=== PATIENT | female | born 1935 | race Caucasian/White ===

== ENCOUNTER → 2017-02-24 | Outpatient (CLI) | payer MEDICARE, OTHER ==
--- NOTE | 2017-02-24 12:38 | RAD ---
EXAM DESCRIPTION: Shoulder,Left 2 or More Views CLINICAL HISTORY: SHOULDER PAIN COMPARISON: April 27, 2015 TECHNIQUE: Four views of the left shoulder. FINDINGS: The bones are osteopenic with mild AC joint arthropathy and moderate degenerative lipping at the inferior margin of the humeral head. The chest wall appears intact. The aorta is tortuous. No fracture or destructive change or significant interval change from a single view available 04/27/2015 is noted. IMPRESSION: 1. Osteopenic and degenerative shoulder without acute injury. Electronically signed by: Milan Cerna MD 02/24/2017 12:38 PM CDT
== END | disposition home or self-care (01) ==
LOC: RAD 08:17
PROVIDERS: ATTEND Orthopaedic Surgery
DX: M25.512 Pain in left shoulder (principal)

== ENCOUNTER → 2017-03-19 | Outpatient (CLI) | payer MEDICARE | END | disposition home or self-care (01) | LOC: GMAB 12:13 | PROVIDERS: ATTEND Family Medicine | DX: E03.9 Hypothyroidism, unspecified (principal) ==

== ENCOUNTER → 2017-06-27 | Outpatient (CLI) | payer MEDICARE | END | disposition home or self-care (01) | LOC: GMAB 13:12 | PROVIDERS: ATTEND Family Medicine | DX: R06.02 Shortness of breath (principal) ==

== ENCOUNTER → 2018-01-05 | Outpatient (CLI) | payer MEDICARE | LOC: GMAB 17:17 | PROVIDERS: ATTEND Family Medicine | DX: K59.01 Slow transit constipation (principal); R10.33 Periumbilical pain ==

== ENCOUNTER → 2018-02-09 | Outpatient (CLI) | payer MEDICARE ==
--- NOTE | 2018-02-09 08:16 | RAD ---
EXAM DESCRIPTION: Shoulder,Left 2 or More Views CLINICAL HISTORY: PAIN IN LEFT SHOULDER COMPARISON: Previous study February 24, 2017, left shoulder for x-ray views TECHNIQUE: Four views of the left shoulder. FINDINGS: There is adequate internal and external rotation. Normal alignment on transscapular Y view and transaxillary view There is no fracture or dislocation. Sclerosis and eburnation of the humeral head is noted with complete cartilage loss at the glenohumeral joint. Prominent medial osteophyte of the proximal left humeral head neck junction. Findings appear similar to previous study. IMPRESSION: Degenerative changes of the glenohumeral joint with proximal humeral spurring. Electronically signed by: Luis M Corado MD 02/09/2018 8:15 AM CDT
== END ==
LOC: RAD 07:33
PROVIDERS: ATTEND Orthopaedic Surgery
DX: M25.512 Pain in left shoulder (principal)

== ENCOUNTER → 2018-03-05 | Outpatient (CLI) | payer MEDICARE | LOC: GMAB 14:33 | PROVIDERS: ATTEND Family Medicine | DX: G30.9 Alzheimer's disease, unspecified (principal) ==

== ENCOUNTER → 2018-03-11 | Outpatient (CLI) | payer MEDICARE ==
--- NOTE | 2018-03-11 15:57 | CT ---
EXAM DESCRIPTION: Abdomen/Pelvis w/wo Contrast: Computed Tomography. CLINICAL HISTORY: ASYMPTOMATIC MICROSCOPIC HEMATURIA COMPARISON: None. TECHNIQUE: Spiral-axial scans at 5.0 mm intervals through the abdomen and pelvis before and after standard dose nonionic IV contrast. No oral contrast. Coronal and sagittal 2.0 mm reconstructions. 5 mm Delayed helical-axial scans, liver through the pubic symphysis. No adverse reactions. Total Exam DLP 1514 mGy - cm. This exam was performed according to our departmental CT dose-optimization program which includes automated exposure control, adjustment of the mA and/or kV according to patient size and/or use of iterative reconstruction technique; to reduce radiation dose to as low as reasonably achievable (ALARA). FINDINGS: Lung bases and pleura: Bilateral scarring in the lung bases. No pleural effusion. Minimal coronary artery calcification. Liver, Stomach, Spleen, Adrenal Glands: Negative. Pancreas, Gallbladder, Ducts: Gallbladder has been surgically removed with no fluid in the gallbladder fossa. Other organs are unremarkable.. Kidneys and Ureters: Negative. Mesentery: No free air or ascites. No mesenteric stranding or fascial thickening. Aorta: Minimal atherosclerotic calcification and ectasia. Small Bowel: Avila fluid and gas distal small bowel with air-fluid levels but no significant distention. Terminal Ileum/Cecum: Anastomotic surgery on the cecum. Adjacent fatty calcifications. Normal caliber of the distal ileum. Appendix not seen. No fatty stranding or fluid. Colon: Mostly fluid distally with no diverticula and no air-fluid levels. No wall thickening. Pelvic Organs: Small anteverted uterus abutting the dome of the urinary bladder. The bladder contains minimal contrast with possible right lateral diverticulum. No fluid in the cul-de-sac. Ovaries are not well seen. Multiple tortuous vessels in the bilateral pelvis abutting the uterus and extending into the adnexa more on the right than the left. These vessels connecting to the bilateral renal veins superiorly. No contrast extravasation.. Spine and Bony Pelvis: Spondylosis L1-L2 and L5-S1 with foraminal narrowing at both levels. Abdominal Wall/Back Soft Tissues: Negative. IMPRESSION: 1. Bilateral kidneys are unremarkable. Right ureter unremarkable left ureter not well seen. Minimal filling of the urinary bladder with possible right lateral diverticulum. Consider retrograde cystoscopy. 2. Small uterus is seen with multiple dilated vascular structures and interpreted to be venous which connect to bilateral ovarian veins and bilateral renal veins. No contrast extravasation. No fluid in the cul-de-sac. 3. Increased fluid and gas in the distal small bowel but no significant air-fluid levels and no evidence of obstruction. No free fluid or free air. Electronically signed by: Humberto Young MD 03/11/2018 3:56 PM CDT
--- NOTE | 2018-03-11 16:18 | CT ---
EXAM DESCRIPTION: Head w/wo Contrast: Computed Tomography. CLINICAL HISTORY: ALZHEIMER'S DISEASE, UNSPECIFIED COMPARISON: CT scan of the abdomen and pelvis on this visit. TECHNIQUE: Non - Helical-axial scans through the head and brain at 2.5 mm intervals, without and with nonionic IV contrast. Coronal and sagittal 2.5 mm reconstructions, without and with nonionic IV contrast. No adverse reactions. Total Exam DLP: 1504.96 mGy-cm. This exam was performed according to our departmental CT dose-optimization program which includes automated exposure control, adjustment of the mA and/or kV according to patient size and/or use of iterative reconstruction technique; to reduce radiation dose to as low as reasonably achievable (ALARA). FINDINGS: No hemorrhage. No mass-effect and no midline shift. Normal contrast enhancement. Minimally decreased density bilateral periventricular white matter. No abnormal radiodense material in the brain parenchyma.Vascular calcifications anterior and posterior circulations; physiologic calcifications in the pineal gland and choroid plexus. No effacement or displacement of the ventricles, CSF spaces, or subdural spaces. Normal contrast enhancement. No extra axial fluid collection or hemorrhage. No gross abnormalities of the bony calvarium. . Ectasia noted in the bilateral ICAs and proximal middle cerebral arteries. Right posterior communicating arteries present. Ectasia also noted in the distal basilar artery. Included paranasal air cells show minimal mucoperiosteal thickening with bilateral kristie bullosa in the middle turbinates. Mastoid air cells are unremarkable. IMPRESSION: 1. No hemorrhage, intra-axial or extra-axial. No mass effect or midline shift.. 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 2. Ectasia in the distal basilar artery and in the proximal bilateral intracranial ICAs with atherosclerotic calcification in the anterior and posterior circulations. Electronically signed by: Humberto Young MD 03/11/2018 4:16 PM CDT
== END ==
LOC: CT 09:17
PROVIDERS: ATTEND Family Medicine
DX: G30.9 Alzheimer's disease, unspecified (principal); R31.21 Asymptomatic microscopic hematuria; N23 Unspecified renal colic

== ENCOUNTER → 2018-04-20 | Outpatient (CLI) | payer MEDICARE | LOC: GMAE 12:11 | PROVIDERS: ATTEND Family Medicine | DX: E03.9 Hypothyroidism, unspecified (principal) ==

== ENCOUNTER 2018-11-08 19:24 | Emergency (ER) | payer MEDICARE ==
[2018-11-08 19:43] VITALS: TEMP 98
[2018-11-08] MEDS ORDERED: CLOPIDOGREL 75 MG TAB PO ONE (19:48)
[2018-11-08] MEDS ORDERED: PRAVASTATIN SODIUM 20 MG TAB PO ONE (19:49)
--- NOTE | 2018-11-08 19:50 | ED.PDOC ---
History of Present Illness - General Chief Complaint: Eye Problems Stated Complaint: momentary vision loss left eye Time Seen by Provider: 11/08/18 19:44 Source: patient Exam Limitations: no limitations - History of Present Illness Initial Comments: Krystin Santana 83 y/o female stated that while reading a book tonight she had momentary loss of vision on her left eye lasting for few minutes but wiliam back several years ago it happened to her right eye 2 x but never reported it to her Md when she had visit last week.Denies any history of trauma to eyes, muscle weakness,dysarthria.dnies chronic medical problems except for chronic back pains. Timing/Duration: 1-3 hours Severity: moderate Improving Factors: nothing Worsening Factors: nothing Associated Symptoms: denies symptoms Allergies/Adverse Reactions: Allergies Aspirin Allergy (Verified 11/08/18 19:42) Codeine Allergy (Unverified 04/14/13 07:59) Home Medications: Ambulatory Orders Omeprazole 20 mg PO DAILY 04/14/13 Raloxifene HCl [Evista] 60 mg PO DAILY 04/14/13 Thyroid [Magnetic Prospecting Supervisor Thyroid 30] 30 mg PO DAILY 04/14/13 Clopidogrel Bisulfate [Plavix] 75 mg PO QDPC #30 tab 11/08/18 Memory Pill 11/08/18 Pravastatin Sodium 10 mg PO BEDTIME #30 tab 11/08/18 Propranolol HCl 40 mg PO 11/08/18 Review of Systems - Review of Systems Constitutional: States: no symptoms reported EENTM: States: see HPI, blurred vision Respiratory: States: no symptoms reported Cardiology: States: no symptoms reported Gastrointestinal/Abdominal: States: no symptoms reported Genitourinary: States: no symptoms reported Musculoskeletal: States: no symptoms reported Skin: States: no symptoms reported Neurological: States: no symptoms reported Endocrine: States: no symptoms reported Past Medical History (General) - Patient Medical History Hx Congestive Heart Failure: No Hx Thyroid Disease: Yes Hx Diabetes: No Hx Gastroesophageal Reflux: Yes Surgical History: appendectomy, cholecystectomy, colectomy - Vaccination History Hx Influenza Vaccination: No - Triage Comment ED Triage Comment: Momentary "black vision" in left eye. Denies any other systems Family Medical History - Family History Father Family History: Unknown Hx Family Stroke: Yes - at age 80 y/o Physical Exam - Physical Exam General Appearance: Alert, Comfortable, No apparent distress Eye Exam: bilateral normal, bilateral other - unable to see funduscopic exam patient unable to tolerate light Ears, Nose, Throat: normal ENT inspection, normal pharynx Neck: non-tender, full range of motion, supple, normal inspection, other - no carotid bruits bilaterally Respiratory: chest non-tender, lungs clear, normal breath sounds Cardiovascular/Chest: normal peripheral pulses, regular rate, rhythm, no murmur Peripheral Pulses: radial,right: 2+, radial,left: 2+ Gastrointestinal/Abdominal: normal bowel sounds, non tender, soft, no organomegaly Back Exam: no CVA tenderness, no vertebral tenderness Extremity: no pedal edema, no calf tenderness Neurologic: alert, oriented x 3 Skin Exam: normal color, warm/dry Lymphatic: no adenopathy Progress - Progress Progress: 11/08/18 21:36 Vital Signs - 8 hr 11/08/18 11/08/18 11/08/18 19:38 20:13 20:30 Temperature 98.0 F Pulse Rate [ 56 L 50 L 52 L Right] Respiratory 18 16 16 Rate Blood Pressure 140/107 124/79 122/79 [Left Arm] O2 Sat by Pulse 96 97 96 Oximetry 11/08/18 21:43 Discuss all test result with patient in the presence of her recommend neri for hospital obs but wants to go home prefers to see her Md this coming week has an appointment with Dr. Almeida. - Results/Orders Results/Orders: 11/08/18 19:45 EKG STAT 11/08/18 20:05 C-REACTIVE PROTEIN Stat CARDIAC PANEL,ER Stat HEPATIC FUNCTION PANEL Stat Laboratory Results - last 24 hr 11/08/18 11/08/18 20:05 20:05 WBC 6.9 RBC 4.04 L Hgb 12.8 Hct 39.0 MCV 96.3 MCH 31.6 H MCHC 32.9 L RDW 13.7 Plt Count 183 MPV 7.3 L Absolute Neuts (auto) 3.90 Absolute Lymphs (auto) 2.40 Absolute Monos (auto) 0.50 Absolute Eos (auto) 0.10 Absolute Basos (auto) 0.10 Neutrophils % 55.9 Lymphocytes % 34.0 Monocytes % 7.7 Eosinophils % 1.5 Basophils % 0.9 ESR 5 PT 10.0 INR 1.00 PTT (SP) 24.3 Sodium 135 Potassium 4.4 Chloride 97 L Carbon Dioxide 31 Anion Gap 11.4 L BUN 23 H Creatinine 1.02 BUN/Creatinine Ratio 22.5 H Random Glucose 83 Serum Osmolality 272.9 L Calcium 9.3 Magnesium 2.1 Total Bilirubin 0.3 Direct Bilirubin < 0.1 Indirect Bilirubin 0.2 AST 24 ALT 17 Alkaline Phosphatase 43 Creatine Kinase 218 H* CK-MB (CK-2) 2.6 Troponin I < 0.02 C-Reactive Protein 0.8 Serum Total Protein 6.8 Albumin 4.1 - EKG/XRAY/CT EKG: Godfrey, Sinus Comments: HR-51 CT Ordered: Yes - no acute abnormalities/radiologist Departure - Departure Clinical Impression: Amaurosis fugax of left eye Time of Disposition: 21:46 Disposition: Discharge to Home or Self Care Condition: Fair Departure Forms: ED Discharge - Pt. Copy, Patient Portal Self Enrollment Instructions: DI for Visual Field Disturbances Referrals: Raúl Ferrari MD [Primary Care Provider] - 1-2 Weeks Prescriptions: Clopidogrel Bisulfate [Plavix] 75 mg PO QDPC #30 tab Pravastatin Sodium 10 mg PO BEDTIME #30 tab Home Medications: Ambulatory Orders Omeprazole 20 mg PO DAILY 04/14/13 Raloxifene HCl [Evista] 60 mg PO DAILY 04/14/13 Thyroid [Magnetic Prospecting Supervisor Thyroid 30] 30 mg PO DAILY 04/14/13 Clopidogrel Bisulfate [Plavix] 75 mg PO QDPC #30 tab 11/08/18 Memory Pill 11/08/18 Pravastatin Sodium 10 mg PO BEDTIME #30 tab 11/08/18 Propranolol HCl 40 mg PO 11/08/18 Additional Instructions: Return to ER if symptoms worsens;Keep appointment with primary Md as scheduled this week
--- NOTE | 2018-11-08 20:31 | RAD ---
EXAM: Chest,1 View CLINICAL INDICATION: 83-year-old female with temporary vision loss. TECHNIQUE: Single view, AP portable chest was obtained. COMPARISON: 09/27/2013. FINDINGS: Stable cardiac and mediastinal silhouette. Heart size is normal. Lungs are clear without focal opacity, pneumothorax or pleural effusions. The visualized bones are within normal limits. IMPRESSION: No acute cardiopulmonary abnormalities. Electronically signed by: Katina Ragland MD 11/08/2018 8:29 PM [facility]
--- NOTE | 2018-11-08 20:44 | CT ---
EXAM: Head CLINICAL INDICATION: 81-year-old female with temporary visual loss. COMPARISON: 03/11/2018. TECHNIQUE: CT brain without contrast. This exam was performed according to our departmental dose optimization program which includes use of automated exposure control, adjustment of the mA and/or kV according to patient size and/or use of iterative reconstruction technique. FINDINGS: The ventricles, sulci, and cisterns are symmetric and unremarkable. The leonard-white matter differentiation is preserved. There is no mass effect, midline shift, intra- or extra-axial fluid collection/acute hemorrhage. The osseous structures are unremarkable. The paranasal sinuses and mastoid air cells are clear. IMPRESSION: 1. No acute intracranial abnormalities. 2. CT is insensitive for early evaluation of acute stroke. If there is clinical concern for acute ischemia, an MRI may be considered. Electronically signed by: Katina Ragland MD 11/08/2018 8:43 PM [facility]
[2018-11-08 22:01] VITALS: BP 127/97; O2SAT 97
== END 2018-11-08 22:02 | disposition home or self-care (01) ==
LOC: ER 19:24
DX: G45.3 Amaurosis fugax (principal); R00.1 Bradycardia, unspecified; E07.9 Disorder of thyroid, unspecified; K21.9 Gastro-esophageal reflux disease without esophagitis; Z79.899 Other long term (current) drug therapy; Z88.6 Allergy status to analgesic agent; Z88.5 Allergy status to narcotic agent

== ENCOUNTER → 2018-11-10 | Outpatient (CLI) | payer MEDICARE ==
--- NOTE | 2018-11-10 11:37 | US ---
EXAM DESCRIPTION: Carotid Duplex CLINICAL HISTORY: UNSPECIFIED VISUAL DISTURBANCE COMPARISON: None Available. TECHNIQUE: Carotid Doppler ultrasound FINDINGS: Right Submitted images show no significant stenosis in the common carotid, internal carotid or external carotid arteries. Mild plaque in the right carotid bulb. Right ICA is tortuous. The following flow velocities were obtained: Common carotid artery peak systolic flow velocity measures 78 centimeters per second. Internal carotid artery peak systolic flow velocity measures 60 centimeters per second. External carotid artery peak systolic flow velocity measures 59 centimeters per second. Flow in the right vertebral artery is antegrade. The right internal carotid to common carotid peak systolic flow velocity ratio equals 0.8 which is normal. Left Submitted images show normal caliber of the left common carotid, internal carotid and external carotid arteries with no significant stenosis. Mild calcified plaque in the proximal left ICA. Markedly tortuous left ICA. The following flow velocities were obtained: Common carotid artery peak systolic flow velocity measures 76 centimeters per second. Internal carotid artery peak systolic flow velocity measures 50 centimeters per second. External carotid artery peak systolic flow velocity measures 77 centimeters per second. Flow in the left vertebral artery is antegrade. The left internal carotid to common carotid peak systolic flow velocity ratio of 0.7 is normal. 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 No hemodynamically significant stenosis. Electronically signed by: Luis M Corado MD 11/10/2018 11:36 AM [facility]
== END ==
LOC: US 10:31
PROVIDERS: ATTEND Family Medicine
DX: I65.23 Occlusion and stenosis of bilateral carotid arteries (principal); H53.9 Unspecified visual disturbance

== ENCOUNTER → 2019-04-28 | Outpatient (CLI) | payer MEDICARE | LOC: GMAE 11:04 | PROVIDERS: ATTEND Family Medicine | DX: E03.9 Hypothyroidism, unspecified (principal); E78.2 Mixed hyperlipidemia; Z79.899 Other long term (current) drug therapy ==

== ENCOUNTER → 2019-11-10 | Outpatient (CLI) | payer MEDICARE | LOC: GMAE 16:52 | PROVIDERS: ATTEND Family Medicine | DX: R53.83 Other fatigue (principal); R21 Rash and other nonspecific skin eruption ==